=== PATIENT | male | born 1955 | race Caucasian/White ===

== ENCOUNTER 2016-06-08 16:19 | Outpatient (CLI) | END 2016-06-08 16:20 | disposition home or self-care (01) | LOC: LAB 16:19 | PROVIDERS: ATTEND General Practice | DX: J02.9 Acute pharyngitis, unspecified (principal) | CPT/HCPCS: 87651; 87880 ==

== ENCOUNTER 2017-12-13 14:29 | Outpatient (CLI) | END 2017-12-13 14:30 | disposition home or self-care (01) | LOC: CAR 14:29 | PROVIDERS: ATTEND General Practice | DX: R00.0 Tachycardia, unspecified (principal) | CPT/HCPCS: 93005; 93010 ==